=== PATIENT | female | born 1950 | race Caucasian/White ===

== ENCOUNTER 2016-11-21 06:14 | Inpatient (IN) | payer MEDICARE, OTHER ==
[~2016-11-21] VITALS: Ht 162.6 cm; Wt 92.0 kg
[~2016-11-21 06:14] MED LIST: ANTIVERT 25MG25 MG PO; HCTZ 25MG TAB25 MG; MICARDIS80 MG; PEN-VEE K500 MG PO; PERCOCET 325 MG1 TA2 PO; PRAVACHOL 20MG20 MG; PRAVACHOL 20MG20 MG PO; PRINZIDE 25 MG-1 TAB PO
[2016-11-21 06:56] LABS: BASO % 0.6 % (0.0-2.0); EOS # 0.1 (0.0-0.7); EOS % 1.3 % (0-4.0); GRAN # 2.9 (1.4-6.5); GRAN % 61.2 % (42.2-75.2); HEMATOCRIT 38.2 % (37.0-47.0); HEMOGLOBIN 12.8 g/dl (12.5-16.0); LYMPH # 1.4 (1.2-3.4); LYMPH % 29.7 % (20.0-51.0); MEAN CELL VOLUME 87 fl (80.0-100.0); MEAN CORPUSCULAR HEMOGLOBIN 29 pg (27.0-31.0); MEAN CORPUSCULAR HGB CONC 34 g/dl (33.0-37.0); MEAN PLATELET VOLUME 10.3 fl (7.4-10.4); MONO # 0.3 (0.1-0.6); PLATELET COUNT 128 K/mm3 (130-400); RED BLOOD COUNT 4.39 M/mm3 (4.10-5.30); REDCELL DISTRIBUTION WIDTH-CV 13.6 % (11.5-14.5); WHITE BLOOD COUNT 4.7 K/mm3 (4.8-10.8)
[2016-11-21 07:00] LABS: INR 1.1 (0.8-3.0); PROTHROMBIN TIME 12.1 SECONDS (9.7-12.8)
[2016-11-21 07:09] LABS: ADJUSTED CALCIUM 9.1 mg/dL (8.4-10.2); ALANINE AMINOTRANSFERASE 27 U/L (9-52); ALBUMIN 4.5 gm/dL (3.5-5.0); ALKALINE PHOSPHATASE 105 U/L (50-136); ANION GAP 11 mmol/L (7-16); BILIRUBIN,TOTAL 1.4 mg/dL (0.0-1.0); BLOOD UREA NITROGEN 13 mg/dL (7-17); CALCIUM 9.5 mg/dL (8.4-10.2); CARBON DIOXIDE 25 mmol/L (22-30); CHLORIDE 102 mmol/L (98-107); CREATININE, serum 0.66 mg/dL (0.52-1.25); GLUCOSE 145 mg/dL (74-106); POTASSIUM 3.6 mmol/L (3.4-5.0); SODIUM 138 mmol/L (137-145); TOTAL PROTEIN 7.9 gm/dL (6.4-8.2)
[2016-11-21 07:52] LABS: TROPONIN-I < 0.012 ng/mL (0.000-0.034)
[2016-11-21 07:55] LABS: B-TYPE NATRIURETIC PEPTIDE 977 pg/mL (0-125)
[2016-11-21 10:04] VITALS: BP 173/99; PULSE 88; TEMP 97.3
[2016-11-21 11:43] VITALS: BP 184/86; PULSE 88; TEMP 97.3
[2016-11-21 16:44] VITALS: BP 169/81; PULSE 82; TEMP 98
[2016-11-21 22:15] VITALS: BP 161/98; PULSE 73
[2016-11-22] VITALS (11 sets, daily range): BP systolic 148–189; BP diastolic 67–100; PULSE 70–99; TEMP 97.8–98.5
[2016-11-22 08:49] LABS: TROPONIN-I < 0.012 ng/mL (0.000-0.034)
[2016-11-22 09:02] LABS: CHOLESTEROL 220 mg/dL (120-200); HDL CHOLESTEROL 46 mg/dL; LDL CHOLESTEROL 115 mg/dL; TRIGLYCERIDE 294 mg/dL
[2016-11-23] VITALS (21 sets, daily range): BP systolic 95–141; BP diastolic 46–84; PULSE 58–83; TEMP 97.7–98
[2016-11-23 07:58] LABS: HEMATOCRIT 41.1 % (37.0-47.0); MEAN CELL VOLUME 88 fl (80.0-100.0); MEAN CORPUSCULAR HEMOGLOBIN 30 pg (27.0-31.0); MEAN CORPUSCULAR HGB CONC 34 g/dl (33.0-37.0); MEAN PLATELET VOLUME 10.6 fl (7.4-10.4); PLATELET COUNT 143 K/mm3 (130-400); RED BLOOD COUNT 4.69 M/mm3 (4.10-5.30); REDCELL DISTRIBUTION WIDTH-CV 13.9 % (11.5-14.5); WHITE BLOOD COUNT 5.6 K/mm3 (4.8-10.8)
[2016-11-23 08:02] LABS: INR 1.2 (0.8-3.0)
[2016-11-23 08:04] LABS: PARTIAL THROMBOPLASTIN TIME 38.4 SECONDS (26.0-37.0)
[2016-11-23 08:13] LABS: CALCIUM 9.8 mg/dL (8.4-10.2); CREATININE, serum 0.75 mg/dL (0.52-1.25); POTASSIUM 3.7 mmol/L (3.4-5.0)
[2016-11-24] VITALS (13 sets, daily range): BP systolic 85–130; BP diastolic 47–65; PULSE 71–83; TEMP 97.9–98.5
[2016-11-24] MEDS ORDERED: PLAVIX 75MG TAB75 MG PO (12:52)
[2016-11-24] MEDS ORDERED: IMDUR 30MG30 MG/TAB PO (12:53)
[2016-11-24] MEDS ORDERED: LIPITOR20 MG PO (12:53)
[2016-11-24] MEDS ORDERED: ZESTRIL 5MG5 MG PO (12:54)
[2016-11-24] MEDS ORDERED: ASPIRIN E.C. 8181 MG PO (12:54)
[2016-11-24] MEDS ORDERED: COREG 3.123.125 MG/T PO (15:44)
[2016-11-24] MEDS ORDERED: NITROSTAT0.4 MG/TAB SL (15:44)
== END 2016-11-24 18:45 | disposition home or self-care (01) | DRG 287 ==
LOC: COL.ER 06:14 → MEDICAL 08:07
PROVIDERS: Family Medicine; Internal Medicine Cardiovascular Disease; Nurse Practitioner Family
PROC: B2111ZZ Fluoroscopy of Multiple Coronary Arteries using Low Osmolar Contrast (ICD-10-PCS; principal; 2016-11-23)
DX: I16.0 Hypertensive urgency (principal); I42.0 Dilated cardiomyopathy; I50.22 Chronic systolic (congestive) heart failure; I11.0 Hypertensive heart disease with heart failure; I25.10 Atherosclerotic heart disease of native coronary artery without angina pectoris; Z87.891 Personal history of nicotine dependence
CPT/HCPCS: 99232-AI; 99233-AI; 99239; A9502; C1769; C1887; C1894; G0378; J1644; J1650; J2250; J2785; J3010; J7040; Q9967

== ENCOUNTER 2016-12-01 00:11 | Emergency (ER) | payer MEDICARE ==
[~2016-12-01] VITALS: Ht 162.6 cm; Wt 90.9 kg
[~2016-12-01 00:11] MED LIST changes: +ASPIRIN E.C. 8181 MG PO; +COREG 3.123.125 MG/T PO; +IMDUR 30MG30 MG/TAB PO; +LIPITOR20 MG PO; +NITROSTAT0.4 MG/TAB SL; +PLAVIX 75MG TAB75 MG PO; +ZESTRIL 5MG5 MG PO
[2016-12-01 00:14] VITALS: TEMP 97.5
[2016-12-01 00:41] LABS: BASO % 0.5 % (0.0-2.0); EOS # 0.1 (0.0-0.7); EOS % 0.9 % (0-4.0); GRAN # 4.2 (1.4-6.5); GRAN % 63.1 % (42.2-75.2); HEMATOCRIT 36.8 % (37.0-47.0); HEMOGLOBIN 12.6 g/dl (12.5-16.0); LYMPH # 1.8 (1.2-3.4); LYMPH % 27.3 % (20.0-51.0); MEAN CELL VOLUME 86 fl (80.0-100.0); MEAN CORPUSCULAR HEMOGLOBIN 30 pg (27.0-31.0); MEAN CORPUSCULAR HGB CONC 34 g/dl (33.0-37.0); MEAN PLATELET VOLUME 10.7 fl (7.4-10.4); MONO # 0.5 (0.1-0.6); MONO % 7.9 % (1.7-9.3); PLATELET COUNT 135 K/mm3 (130-400); RED BLOOD COUNT 4.26 M/mm3 (4.10-5.30); REDCELL DISTRIBUTION WIDTH-CV 13.5 % (11.5-14.5); WHITE BLOOD COUNT 6.6 K/mm3 (4.8-10.8)
[2016-12-01 00:45] LABS: INR 1.2 (0.8-3.0); PROTHROMBIN TIME 13.2 SECONDS (9.7-12.8)
[2016-12-01 00:47] LABS: PARTIAL THROMBOPLASTIN TIME 36.1 SECONDS (26.0-37.0)
[2016-12-01 00:50] LABS: ADJUSTED CALCIUM 9.4 mg/dL (8.4-10.2); ALANINE AMINOTRANSFERASE 40 U/L (9-52); ALBUMIN 4.4 gm/dL (3.5-5.0); ALKALINE PHOSPHATASE 95 U/L (50-136); ANION GAP 14 mmol/L (7-16); BILIRUBIN,TOTAL 1.5 mg/dL (0.0-1.0); BLOOD UREA NITROGEN 12 mg/dL (7-17); CALCIUM 9.7 mg/dL (8.4-10.2); CARBON DIOXIDE 26 mmol/L (22-30); CHLORIDE 101 mmol/L (98-107); GLUCOSE 109 mg/dL (74-106); LIPASE 95 U/L (23-300); POTASSIUM 3.9 mmol/L (3.4-5.0); SODIUM 141 mmol/L (137-145); TOTAL PROTEIN 7.5 gm/dL (6.4-8.2)
[2016-12-01 01:02] LABS: B-TYPE NATRIURETIC PEPTIDE 1090 pg/mL (0-125); TROPONIN-I < 0.012 ng/mL (0.000-0.034)
[2016-12-01 04:02] VITALS: BP 150/67; PULSE 75
[2016-12-01] MEDS ORDERED: PROTONIX 40MG T40 MG PO (04:56)
== END 2016-12-01 05:10 | disposition home or self-care (01) ==
LOC: COL.ER 00:11
PROVIDERS: Emergency Medicine
DX: R00.2 Palpitations (principal); K29.70 Gastritis, unspecified, without bleeding; I25.10 Atherosclerotic heart disease of native coronary artery without angina pectoris; I11.0 Hypertensive heart disease with heart failure; I50.9 Heart failure, unspecified; E78.5 Hyperlipidemia, unspecified; Z79.82 Long term (current) use of aspirin; Z87.891 Personal history of nicotine dependence; Z95.9 Presence of cardiac and vascular implant and graft, unspecified

== ENCOUNTER 2016-12-16 03:22 | Emergency (ER) | payer MEDICARE ==
[~2016-12-16] VITALS: Ht 162.6 cm; Wt 86.4 kg
[~2016-12-16 03:22] MED LIST changes: +PROTONIX 40MG T40 MG PO
[2016-12-16 03:30] VITALS: TEMP 98
[2016-12-16 03:47] LABS: BASO % 0.5 % (0.0-2.0); EOS # 0.1 (0.0-0.7); EOS % 1.4 % (0-4.0); GRAN # 2.7 (1.4-6.5); GRAN % 62.7 % (42.2-75.2); LYMPH # 1.1 (1.2-3.4); LYMPH % 25.5 % (20.0-51.0); MEAN CELL VOLUME 88 fl (80.0-100.0); MEAN CORPUSCULAR HGB CONC 34 g/dl (33.0-37.0); MEAN PLATELET VOLUME 11.3 fl (7.4-10.4); MONO # 0.4 (0.1-0.6); MONO % 9.7 % (1.7-9.3); PLATELET COUNT 96 K/mm3 (130-400); RED BLOOD COUNT 3.78 M/mm3 (4.10-5.30); REDCELL DISTRIBUTION WIDTH-CV 13.6 % (11.5-14.5); WHITE BLOOD COUNT 4.4 K/mm3 (4.8-10.8)
[2016-12-16 03:48] LABS: HEMATOCRIT 33.4 % (37.0-47.0); HEMOGLOBIN 11.3 g/dl (12.5-16.0); MEAN CORPUSCULAR HEMOGLOBIN 30 pg (27.0-31.0)
[2016-12-16 03:55] LABS: ADJUSTED CALCIUM 9.1 mg/dL (8.4-10.2); ALANINE AMINOTRANSFERASE 42 U/L (9-52); ALBUMIN 4.3 gm/dL (3.5-5.0); ALKALINE PHOSPHATASE 81 U/L (50-136); ANION GAP 14 mmol/L (7-16); BILIRUBIN,TOTAL 1.2 mg/dL (0.0-1.0); BLOOD UREA NITROGEN 17 mg/dL (7-17); CALCIUM 9.3 mg/dL (8.4-10.2); CARBON DIOXIDE 23 mmol/L (22-30); CHLORIDE 104 mmol/L (98-107); CREATININE, serum 0.73 mg/dL (0.52-1.25); GLUCOSE 142 mg/dL (74-106); LIPASE 147 U/L (23-300); POTASSIUM 3.3 mmol/L (3.4-5.0); SODIUM 141 mmol/L (137-145); TOTAL PROTEIN 7.3 gm/dL (6.4-8.2)
[2016-12-16 04:07] LABS: B-TYPE NATRIURETIC PEPTIDE 416 pg/mL (0-125)
[2016-12-16 04:08] LABS: TROPONIN-I < 0.012 ng/mL (0.000-0.034)
[2016-12-16 05:33] VITALS: BP 150/69; PULSE 74
== END 2016-12-16 05:33 | disposition home or self-care (01) ==
LOC: COL.ER 03:22
PROVIDERS: Emergency Medicine
DX: R07.9 Chest pain, unspecified (principal); R00.2 Palpitations; D61.818 Other pancytopenia; I10 Essential (primary) hypertension; Z87.891 Personal history of nicotine dependence; F41.9 Anxiety disorder, unspecified; I42.9 Cardiomyopathy, unspecified

== ENCOUNTER 2016-12-24 08:21 | Emergency (ER) | payer MEDICARE ==
[~2016-12-24] VITALS: Ht 162.6 cm; Wt 84.1 kg
[2016-12-24 08:24] VITALS: TEMP 97.9
[2016-12-24] MEDS ORDERED: COREG 6.256.25 MG/TA PO (08:38)
[2016-12-24] MEDS ORDERED: ZESTRIL40 MG PO (08:39)
[2016-12-24] MEDS ORDERED: MASON NATURAL1200 MG PO (08:43)
[2016-12-24 09:14] LABS: BASO % 0.2 % (0.0-2.0); EOS # 0.1 (0.0-0.7); EOS % 1.3 % (0-4.0); GRAN # 3.3 (1.4-6.5); GRAN % 69.1 % (42.2-75.2); HEMOGLOBIN 12.4 g/dl (12.5-16.0); LYMPH % 21.3 % (20.0-51.0); MEAN CELL VOLUME 89 fl (80.0-100.0); MEAN CORPUSCULAR HEMOGLOBIN 30 pg (27.0-31.0); MEAN CORPUSCULAR HGB CONC 34 g/dl (33.0-37.0); MEAN PLATELET VOLUME 10.7 fl (7.4-10.4); MONO # 0.4 (0.1-0.6); MONO % 7.9 % (1.7-9.3); PLATELET COUNT 101 K/mm3 (130-400); REDCELL DISTRIBUTION WIDTH-CV 13.3 % (11.5-14.5); WHITE BLOOD COUNT 4.7 K/mm3 (4.8-10.8)
[2016-12-24 09:18] LABS: HEMATOCRIT 36.4 % (37.0-47.0)
[2016-12-24 09:25] LABS: ADJUSTED CALCIUM 9.3 mg/dL (8.4-10.2); ALANINE AMINOTRANSFERASE 51 U/L (9-52); ALBUMIN 4.3 gm/dL (3.5-5.0); ALKALINE PHOSPHATASE 98 U/L (50-136); ANION GAP 13 mmol/L (7-16); BILIRUBIN,TOTAL 1.6 mg/dL (0.0-1.0); BLOOD UREA NITROGEN 10 mg/dL (7-17); CALCIUM 9.5 mg/dL (8.4-10.2); CARBON DIOXIDE 25 mmol/L (22-30); CHLORIDE 101 mmol/L (98-107); CREATININE, serum 0.67 mg/dL (0.52-1.25); GLUCOSE 136 mg/dL (74-106); LIPASE 68 U/L (23-300); POTASSIUM 3.7 mmol/L (3.4-5.0); SODIUM 140 mmol/L (137-145); TOTAL PROTEIN 7.4 gm/dL (6.4-8.2)
[2016-12-24 09:49] LABS: TROPONIN-I < 0.012 ng/mL (0.000-0.034)
[2016-12-24 10:49] VITALS: BP 149/76; PULSE 72
== END 2016-12-24 11:00 | disposition home or self-care (01) ==
LOC: COL.ER 08:21
PROVIDERS: Emergency Medicine
DX: R19.7 Diarrhea, unspecified (principal); I10 Essential (primary) hypertension; K21.9 Gastro-esophageal reflux disease without esophagitis; Z87.11 Personal history of peptic ulcer disease; Z87.891 Personal history of nicotine dependence
CPT/HCPCS: J7030

== ENCOUNTER → 2017-01-05 | Outpatient (CLI) | payer MEDICARE ==
[~2017-01-05] MED LIST changes: +COREG 6.256.25 MG/TA PO; +MASON NATURAL1200 MG PO; +NORCO 325 MG-51 TAB PO; +NORVASC 5MG5 MG/TAB PO; +ULTRAM 50MG TAB50 MG PO; +ZESTRIL40 MG PO
== END ==
LOC: MC.RAD 09:35
DX: Z12.31 Encounter for screening mammogram for malignant neoplasm of breast (principal)

== ENCOUNTER → 2017-01-11 | Outpatient (CLI) | payer MEDICARE | LOC: MC.RAD 09:35 | DX: N63 Unspecified lump in breast (principal); N64.89 Other specified disorders of breast ==

== ENCOUNTER 2017-01-12 19:54 | Emergency (ER) | payer MEDICARE ==
[~2017-01-12] VITALS: Ht 162.6 cm; Wt 84.5 kg
[~2017-01-12 19:54] MED LIST changes: -NORCO 325 MG-51 TAB PO; -NORVASC 5MG5 MG/TAB PO; -ULTRAM 50MG TAB50 MG PO
[2017-01-12 20:04] VITALS: TEMP 97.7
[2017-01-12 21:59] LABS: BASO % 0.3 % (0.0-2.0); EOS # 0.1 (0.0-0.7); EOS % 1.2 % (0-4.0); GRAN # 3.9 (1.4-6.5); GRAN % 66.2 % (42.2-75.2); HEMOGLOBIN 12.2 g/dl (12.5-16.0); LYMPH # 1.4 (1.2-3.4); LYMPH % 23.3 % (20.0-51.0); MEAN CELL VOLUME 88 fl (80.0-100.0); MEAN CORPUSCULAR HEMOGLOBIN 30 pg (27.0-31.0); MEAN CORPUSCULAR HGB CONC 34 g/dl (33.0-37.0); MEAN PLATELET VOLUME 10.8 fl (7.4-10.4); MONO # 0.5 (0.1-0.6); MONO % 8.8 % (1.7-9.3); PLATELET COUNT 122 K/mm3 (130-400); RED BLOOD COUNT 4.09 M/mm3 (4.10-5.30); REDCELL DISTRIBUTION WIDTH-CV 12.9 % (11.5-14.5); WHITE BLOOD COUNT 5.9 K/mm3 (4.8-10.8)
[2017-01-12 22:00] LABS: HEMATOCRIT 35.8 % (37.0-47.0)
[2017-01-12 22:12] LABS: ADJUSTED CALCIUM 9.6 mg/dL (8.4-10.2); ALANINE AMINOTRANSFERASE 39 U/L (9-52); ALBUMIN 4.1 gm/dL (3.5-5.0); ALKALINE PHOSPHATASE 100 U/L (50-136); ANION GAP 11 mmol/L (7-16); BILIRUBIN,TOTAL 1.4 mg/dL (0.0-1.0); BLOOD UREA NITROGEN 11 mg/dL (7-17); C-REACTIVE PROTEIN 0.8 mg/dL (0.0-0.9); CALCIUM 9.7 mg/dL (8.4-10.2); CARBON DIOXIDE 27 mmol/L (22-30); CHLORIDE 100 mmol/L (98-107); CREATININE, serum 0.77 mg/dL (0.52-1.25); GLUCOSE 110 mg/dL (74-106); LIPASE 66 U/L (23-300); POTASSIUM 3.6 mmol/L (3.4-5.0); SODIUM 138 mmol/L (137-145); TOTAL PROTEIN 7.3 gm/dL (6.4-8.2)
[2017-01-12 22:18] LABS: B-TYPE NATRIURETIC PEPTIDE 977 pg/mL (0-125)
[2017-01-12 22:22] LABS: ERYTHROCYTE SEDIMENTATION RATE 18 mm/hr (0-30)
[2017-01-12 22:23] LABS: TROPONIN-I < 0.012 ng/mL (0.000-0.034)
[2017-01-12] MEDS ORDERED: ULTRAM 50MG TAB50 MG PO (22:44)
[2017-01-12] MEDS ORDERED: NORCO 325 MG-51 TAB PO (22:44)
[2017-01-12 23:05] VITALS: BP 198/88; PULSE 55
== END 2017-01-12 23:02 | disposition home or self-care (01) ==
LOC: COL.ER 19:54
PROVIDERS: Emergency Medicine
DX: R07.9 Chest pain, unspecified (principal); D69.6 Thrombocytopenia, unspecified; I10 Essential (primary) hypertension; I42.8 Other cardiomyopathies; I25.10 Atherosclerotic heart disease of native coronary artery without angina pectoris; Z87.891 Personal history of nicotine dependence; Z79.02 Long term (current) use of antithrombotics/antiplatelets
CPT/HCPCS: C9113; J1170; J1885; J7030

== ENCOUNTER 2017-02-21 04:36 | Emergency (ER) | payer MEDICARE ==
[~2017-02-21] VITALS: Ht 162.6 cm; Wt 80.5 kg
[~2017-02-21 04:36] MED LIST changes: +NORCO 325 MG-51 TAB PO; +ULTRAM 50MG TAB50 MG PO
[2017-02-21 04:49] VITALS: TEMP 97.1
[2017-02-21] MEDS ORDERED: NORVASC 5MG5 MG/TAB PO (04:53)
[2017-02-21 05:26] LABS: BASO % 0.2 % (0.0-2.0); EOS # 0.1 (0.0-0.7); EOS % 0.9 % (0-4.0); GRAN # 3.6 (1.4-6.5); LYMPH # 1.3 (1.2-3.4); MEAN CELL VOLUME 88 fl (80.0-100.0); MEAN CORPUSCULAR HEMOGLOBIN 29 pg (27.0-31.0); MEAN CORPUSCULAR HGB CONC 33 g/dl (33.0-37.0); MEAN PLATELET VOLUME 10.4 fl (7.4-10.4); MONO # 0.5 (0.1-0.6); MONO % 8.9 % (1.7-9.3); PLATELET COUNT 114 K/mm3 (130-400); RED BLOOD COUNT 4.08 M/mm3 (4.10-5.30); REDCELL DISTRIBUTION WIDTH-CV 13.2 % (11.5-14.5); WHITE BLOOD COUNT 5.4 K/mm3 (4.8-10.8)
[2017-02-21 05:27] LABS: HEMATOCRIT 35.9 % (37.0-47.0)
[2017-02-21 05:36] LABS: ADJUSTED CALCIUM 9.2 mg/dL (8.4-10.2); ALBUMIN 4.2 gm/dL (3.5-5.0); BILIRUBIN,TOTAL 1.1 mg/dL (0.0-1.0); CALCIUM 9.4 mg/dL (8.4-10.2); CREATININE, serum 0.73 mg/dL (0.52-1.25); MAGNESIUM 1.8 mg/dL (1.6-2.3); POTASSIUM 3.4 mmol/L (3.4-5.0); TOTAL PROTEIN 7.3 gm/dL (6.4-8.2)
[2017-02-21 06:05] VITALS: BP 185/89; PULSE 61
== END 2017-02-21 06:06 | disposition home or self-care (01) ==
LOC: COL.ER 04:36
PROVIDERS: Emergency Medicine
DX: M79.652 Pain in left thigh (principal); I10 Essential (primary) hypertension; E78.5 Hyperlipidemia, unspecified; K21.9 Gastro-esophageal reflux disease without esophagitis

== ENCOUNTER 2017-08-07 08:27 | Emergency (ER) | payer MEDICARE ==
[~2017-08-07] VITALS: Ht 162.6 cm; Wt 81.8 kg
[~2017-08-07 08:27] MED LIST changes: +COREG12.5 MG PO; +LIPITOR 40MG TA40 MG PO; +NORVASC 10MG10 MG PO; +NORVASC 5MG5 MG/TAB PO; +REQUIP 0.5MG0.5 MG PO
[2017-08-07 09:52] LABS: INFLUENZA A NEGATIVE; INFLUENZA B NEGATIVE
[2017-08-07 09:54] LABS: BASO % 0.2 % (0.0-2.0); EOS # 0.1 (0.0-0.7); EOS % 1.2 % (0-4.0); GRAN # 3.8 (1.4-6.5); GRAN % 66.7 % (42.2-75.2); INR 1.1 (0.8-3.0); LYMPH # 1.3 (1.2-3.4); MEAN CELL VOLUME 88 fl (80.0-100.0); MEAN CORPUSCULAR HGB CONC 34 g/dl (33.0-37.0); MEAN PLATELET VOLUME 10.1 fl (7.4-10.4); MONO # 0.5 (0.1-0.6); MONO % 8.7 % (1.7-9.3); PLATELET COUNT 131 K/mm3 (130-400); PROTHROMBIN TIME 13.1 SECONDS (9.7-12.8); RED BLOOD COUNT 3.96 M/mm3 (4.10-5.30); REDCELL DISTRIBUTION WIDTH-CV 12.6 % (11.5-14.5)
[2017-08-07 09:57] LABS: PARTIAL THROMBOPLASTIN TIME 32.7 SECONDS (26.0-37.0)
[2017-08-07] MEDS ORDERED: COREG 6.256.25 MG/TA PO (09:57)
[2017-08-07 10:01] LABS: ALANINE AMINOTRANSFERASE 32 U/L (9-52); ALBUMIN 4.4 gm/dL (3.5-5.0); ALKALINE PHOSPHATASE 120 U/L (50-136); ANION GAP 8 mmol/L (7-16); AST,SGOT 24 U/L (15-37); BILIRUBIN,TOTAL 0.9 mg/dL (0.0-1.0); BLOOD UREA NITROGEN 13 mg/dL (7-17); CALCIUM 9.7 mg/dL (8.4-10.2); CARBON DIOXIDE 30 mmol/L (22-30); CHLORIDE 101 mmol/L (98-107); CREATININE, serum 0.68 mg/dL (0.52-1.25); GLUCOSE 149 mg/dL (74-106); POTASSIUM 3.9 mmol/L (3.4-5.0); SODIUM 138 mmol/L (137-145); TOTAL PROTEIN 7.3 gm/dL (6.4-8.2)
[2017-08-07 10:10] LABS: HEMATOCRIT 34.8 % (37.0-47.0); HEMOGLOBIN 11.7 g/dl (12.5-16.0); MEAN CORPUSCULAR HEMOGLOBIN 30 pg (27.0-31.0)
[2017-08-07 10:14] LABS: TROPONIN-I < 0.012 ng/mL (0.000-0.034)
[2017-08-07 10:31] LABS: D-DIMER < 200.00 ng/mLDDu (200-230)
[2017-08-07] MEDS ORDERED: ZITHROMAX Z PA250 MG PO (11:44)
[2017-08-07] MEDS ORDERED: NORCO 325 MG-51 TAB PO (11:44)
[2017-08-07 12:01] VITALS: BP 1174/67; PULSE 67; TEMP 97.8
== END 2017-08-07 12:03 | disposition home or self-care (01) ==
LOC: COL.ER 08:27
PROVIDERS: Family Medicine
DX: J20.9 Acute bronchitis, unspecified (principal); I25.10 Atherosclerotic heart disease of native coronary artery without angina pectoris

== ENCOUNTER 2017-12-20 11:26 | Emergency (ER) | payer MEDICARE ==
[~2017-12-20] VITALS: Ht 162.6 cm; Wt 86.4 kg
[~2017-12-20 11:26] MED LIST changes: +ZITHROMAX Z PA250 MG PO
[2017-12-20 11:29] VITALS: TEMP 98.5
[2017-12-20] MEDS ORDERED: GLUCOPHAGE500 MG/TAB PO (11:54)
[2017-12-20 12:00] LABS: BASO % 0.5 % (0.0-2.0); EOS # 0.1 (0.0-0.7); EOS % 1.2 % (0-4.0); GRAN # 3.8 (1.4-6.5); GRAN % 64.8 % (42.2-75.2); HEMATOCRIT 36.5 % (37.0-47.0); HEMOGLOBIN 12.6 g/dl (12.5-16.0); LYMPH # 1.4 (1.2-3.4); LYMPH % 24.2 % (20.0-51.0); MEAN CELL VOLUME 87 fl (80.0-100.0); MEAN CORPUSCULAR HEMOGLOBIN 30 pg (27.0-31.0); MEAN CORPUSCULAR HGB CONC 35 g/dl (33.0-37.0); MEAN PLATELET VOLUME 10.4 fl (7.4-10.4); MONO # 0.5 (0.1-0.6); PLATELET COUNT 144 K/mm3 (130-400)
[2017-12-20 12:07] LABS: ALANINE AMINOTRANSFERASE 45 U/L (9-52); ALBUMIN 4.2 gm/dL (3.5-5.0); ALKALINE PHOSPHATASE 118 U/L (50-136); ANION GAP 13 mmol/L (7-16); AST,SGOT 29 U/L (15-37); BLOOD UREA NITROGEN 18 mg/dL (7-17); CALCIUM 9.8 mg/dL (8.4-10.2); CARBON DIOXIDE 26 mmol/L (22-30); CHLORIDE 100 mmol/L (98-107); CREATININE, serum 0.68 mg/dL (0.52-1.25); GLUCOSE 166 mg/dL (74-106); POTASSIUM 4.2 mmol/L (3.4-5.0); SODIUM 138 mmol/L (137-145)
[2017-12-20 12:25] LABS: TROPONIN-I < 0.012 ng/mL (0.000-0.034)
[2017-12-20 12:37] LABS: INR 0.9 (0.8-3.0); PROTHROMBIN TIME 10.3 SECONDS (9.7-12.8)
[2017-12-20 12:40] LABS: PARTIAL THROMBOPLASTIN TIME 34.5 SECONDS (26.0-37.0)
[2017-12-20] MEDS ORDERED: LIPITOR 40MG TA40 MG PO (13:18)
[2017-12-20] MEDS ORDERED: IMDUR 30MG30 MG/TAB PO (13:18)
[2017-12-20 13:30] VITALS: BP 139/73; PULSE 75
== END 2017-12-20 13:48 | disposition home or self-care (01) ==
LOC: COL.ER 11:26
PROVIDERS: Emergency Medicine
DX: R07.89 Other chest pain (principal); I25.10 Atherosclerotic heart disease of native coronary artery without angina pectoris; I42.9 Cardiomyopathy, unspecified; I10 Essential (primary) hypertension; E11.9 Type 2 diabetes mellitus without complications; E78.5 Hyperlipidemia, unspecified; Z79.82 Long term (current) use of aspirin; Z79.02 Long term (current) use of antithrombotics/antiplatelets; Z79.84 Long term (current) use of oral hypoglycemic drugs
CPT/HCPCS: J7030

== ENCOUNTER 2018-03-05 21:10 | Emergency (ER) | payer MEDICARE ==
[~2018-03-05] VITALS: Ht 162.6 cm; Wt 90.9 kg
[~2018-03-05 21:10] MED LIST changes: +GLUCOPHAGE500 MG/TAB PO
[2018-03-05 21:13] VITALS: TEMP 97.7
[2018-03-05 22:12] LABS: BASO % 0.4 % (0.0-2.0); EOS # 0.1 (0.0-0.7); EOS % 1.2 % (0-4.0); GRAN # 4.1 (1.4-6.5); HEMOGLOBIN 12.1 g/dl (12.5-16.0); LYMPH # 1.8 (1.2-3.4); LYMPH % 26.7 % (20.0-51.0); MEAN CELL VOLUME 87 fl (80.0-100.0); MEAN CORPUSCULAR HEMOGLOBIN 30 pg (27.0-31.0); MEAN CORPUSCULAR HGB CONC 34 g/dl (33.0-37.0); MEAN PLATELET VOLUME 10.5 fl (7.4-10.4); MONO # 0.7 (0.1-0.6); MONO % 10.3 % (1.7-9.3); PLATELET COUNT 147 K/mm3 (130-400); RED BLOOD COUNT 4.08 M/mm3 (4.10-5.30); REDCELL DISTRIBUTION WIDTH-CV 12.9 % (11.5-14.5)
[2018-03-05 22:14] LABS: HEMATOCRIT 35.3 % (37.0-47.0)
[2018-03-05 22:26] LABS: ALANINE AMINOTRANSFERASE 31 U/L (9-52); ALBUMIN 4.1 gm/dL (3.5-5.0); ALKALINE PHOSPHATASE 99 U/L (50-136); ANION GAP 12 mmol/L (7-16); AST,SGOT 26 U/L (15-37); BILIRUBIN,TOTAL 0.6 mg/dL (0.0-1.0); BLOOD UREA NITROGEN 14 mg/dL (7-17); CALCIUM 9.3 mg/dL (8.4-10.2); CARBON DIOXIDE 27 mmol/L (22-30); CHLORIDE 100 mmol/L (98-107); CREATININE, serum 0.71 mg/dL (0.52-1.25); GLUCOSE 138 mg/dL (74-106); POTASSIUM 3.4 mmol/L (3.4-5.0); SODIUM 139 mmol/L (137-145); TOTAL PROTEIN 7.3 gm/dL (6.4-8.2)
[2018-03-05 22:44] LABS: TROPONIN-I < 0.012 ng/mL (0.000-0.034)
[2018-03-05 23:56] VITALS: BP 163/82
[2018-03-06 00:43] VITALS: PULSE 67
== END 2018-03-06 00:54 | disposition home or self-care (01) ==
LOC: COL.ER 21:10
PROVIDERS: Emergency Medicine
DX: R07.89 Other chest pain (principal); I10 Essential (primary) hypertension; E78.5 Hyperlipidemia, unspecified; E11.9 Type 2 diabetes mellitus without complications; Z87.891 Personal history of nicotine dependence; Z79.02 Long term (current) use of antithrombotics/antiplatelets; Z79.82 Long term (current) use of aspirin
CPT/HCPCS: J7030

== ENCOUNTER 2018-05-05 19:52 | Emergency (ER) | payer MEDICARE ==
[~2018-05-05] VITALS: Ht 162.6 cm; Wt 86.4 kg
[2018-05-05 19:53] VITALS: TEMP 97.5
[2018-05-05] MEDS ORDERED: ZOFRAN ODT4 MG PO (20:27)
[2018-05-05] MEDS ORDERED: ANTIVERT 25MG25 MG PO (20:27)
[2018-05-05] MEDS ORDERED: PRINIVIL20 MG PO (20:38)
[2018-05-05] MEDS ORDERED: CRESTOR5 MG PO (20:39)
[2018-05-05 21:49] VITALS: BP 135/75; PULSE 73
== END 2018-05-05 21:52 | disposition home or self-care (01) ==
LOC: COL.ER 19:52
DX: R42 Dizziness and giddiness (principal); I25.10 Atherosclerotic heart disease of native coronary artery without angina pectoris; I10 Essential (primary) hypertension; E78.5 Hyperlipidemia, unspecified; E11.9 Type 2 diabetes mellitus without complications; Z79.02 Long term (current) use of antithrombotics/antiplatelets; Z79.84 Long term (current) use of oral hypoglycemic drugs

== ENCOUNTER 2018-10-30 12:59 | Observation (INO) | payer MEDICARE ==
[~2018-10-30] VITALS: Ht 162.6 cm; Wt 88.6 kg
[~2018-10-30 12:59] MED LIST changes: +CRESTOR5 MG PO; +PRINIVIL20 MG PO; +ZOFRAN ODT4 MG PO
[2018-10-30 14:16] VITALS: BP 101/80; PULSE 71
[2018-10-30 14:34] LABS: BASO % 0.4 % (0.0-2.0); EOS # 0.1 (0.0-0.7); EOS % 0.8 % (0-4.0); GRAN # 5.4 (1.4-6.5); GRAN % 72.1 % (42.2-75.2); HEMATOCRIT 40.5 % (37.0-47.0); LYMPH # 1.4 (1.2-3.4); LYMPH % 18.3 % (20.0-51.0); MEAN CELL VOLUME 89 fl (80.0-100.0); MEAN CORPUSCULAR HEMOGLOBIN 28 pg (27.0-31.0); MEAN CORPUSCULAR HGB CONC 32 g/dl (33.0-37.0); MEAN PLATELET VOLUME 10.6 fl (7.4-10.4); MONO # 0.6 (0.1-0.6); MONO % 8.1 % (1.7-9.3); PLATELET COUNT 151 K/mm3 (130-400); RED BLOOD COUNT 4.57 M/mm3 (4.10-5.30); REDCELL DISTRIBUTION WIDTH-CV 13.2 % (11.5-14.5)
[2018-10-30 14:37] LABS: INR 1.1 (0.8-3.0); PROTHROMBIN TIME 12.3 SECONDS (9.7-12.8)
[2018-10-30 14:40] LABS: PARTIAL THROMBOPLASTIN TIME 33.7 SECONDS (26.0-37.0)
[2018-10-30 14:45] LABS: ALANINE AMINOTRANSFERASE 21 U/L (9-52); ALBUMIN 4.5 gm/dL (3.5-5.0); ALKALINE PHOSPHATASE 126 U/L (50-136); ANION GAP 8 mmol/L (7-16); AST,SGOT 31 U/L (15-37); BLOOD UREA NITROGEN 15 mg/dL (7-17); CARBON DIOXIDE 27 mmol/L (22-30); CHLORIDE 103 mmol/L (98-107); CREATININE, serum 0.86 (0.52-1.25); GLUCOSE 135 mg/dL (74-106); LIPASE 80 U/L (23-300); MAGNESIUM 1.9 mg/dL (1.6-2.3); POTASSIUM 4.5 mmol/L (3.4-5.0); SODIUM 138 mmol/L (137-145)
[2018-10-30 15:00] LABS: TROPONIN-I < 0.012 ng/mL (0.000-0.035)
--- NOTE | 2018-10-30 16:56 | NUR ---
Pt arrived to room 310 at this time. She is A/O x3. Her breathing is even and unlabored on RA. Pt denies SOB. No pain at this time. She denies any N/V. No N/T. Denies dizziness. IVF infusing into RAC without complications. Pt unable to verify frequency of all medications, to bring later tonight. POC discussed with patient and family. No needs at this time. Call light within reach.
[2018-10-30 17:00] VITALS: BP 150/62; PULSE 66; TEMP 97.7
[2018-10-30 20:00] VITALS: BP 153/65; PULSE 74; TEMP 97.4
--- NOTE | 2018-10-30 21:00 | NUR ---
pt resting in bed with daughter at bedside. pt reports no pain. no nausea. no SOA. right AC IV- no redness, no swelling. elevated BP, VSS. no needs at this time, call light in reach.
[2018-10-30 23:58] VITALS: BP 150/74; PULSE 67; TEMP 98.2
--- NOTE | 2018-10-31 01:09 | NUR ---
neuro checks unchanged. no pain. no needs at this time. call light inreach
[2018-10-31 03:42] VITALS: BP 117/47; BP 129/61; PULSE 52; PULSE 72; TEMP 98.7
--- NOTE | 2018-10-31 04:46 | NUR ---
pt resting in bed throughout night. no pain. tele on. neuro checks unchanged. no needs at this time. call light in reach.
--- NOTE | 2018-10-31 06:53 | NUR ---
report given to KAYLEN Lugo. reports no needs
[2018-10-31 07:34] VITALS: BP 158/75; PULSE 71; TEMP 98.6
[2018-10-31 07:56] LABS: BASO % 0.3 % (0.0-2.0); EOS # 0.1 (0.0-0.7); GRAN # 3.8 (1.4-6.5); GRAN % 66.7 % (42.2-75.2); HEMATOCRIT 37.8 % (37.0-47.0); HEMOGLOBIN 12.4 g/dl (12.5-16.0); LYMPH # 1.3 (1.2-3.4); LYMPH % 22.9 % (20.0-51.0); MEAN CELL VOLUME 89 fl (80.0-100.0); MEAN CORPUSCULAR HEMOGLOBIN 29 pg (27.0-31.0); MEAN CORPUSCULAR HGB CONC 33 g/dl (33.0-37.0); MEAN PLATELET VOLUME 10.7 fl (7.4-10.4); MONO # 0.5 (0.1-0.6); MONO % 8.9 % (1.7-9.3); PLATELET COUNT 133 K/mm3 (130-400); RED BLOOD COUNT 4.23 M/mm3 (4.10-5.30)
[2018-10-31 08:05] LABS: CALCIUM 9.5 mg/dL (8.4-10.2); CREATININE, serum 0.65 (0.52-1.25); POTASSIUM 4.3 mmol/L (3.4-5.0)
--- NOTE | 2018-10-31 08:33 | NUR ---
patient was admitted from the ER. patient stated she became dizzy and fell and was admitted with a primary diagnosis of synscope. patient was awake in bed and A&Ox4 this morning. IV sites showed no signs if infection or infiltration. Patient stated no pain. After assessments left patient with call light with in reach and bed in the lowest position.
--- NOTE | 2018-10-31 08:40 | NUR ---
Pt assessment complete. Pt has a student nurse caring for her this AM. Pt is A/O x3. Her breathing is even and unlabored on RA. Pt denies any SOB. No pain at present. Pt denies N/V. No dizziness at this time. Neuro checks intact. POC discussed with patient and her . No needs at this time. Call light within reach.
--- NOTE | 2018-10-31 08:59 | NUR ---
MARCIAL student met with the patient and her granddaughter to discuss discharge planning. The patient lives in [place] with her , Vivek, and her granddaughter. The patient reports independence with ADLs and has a cane. The patients PCP is Dr. Belkis Rincon and she gets her medications from [facility]. The patient reports no difficulties obtaining her medications. The patient does not have DPOA-HC in EMR but was interested in completing one. MARCIAL provided and will follow up to witness sign. The patient plans to return home upon discharge with her family. No additional needs at this time.
--- NOTE | 2018-10-31 09:35 | NUR ---
PATIENT AMBULATED IN HALLWAY FOR 10 MINUETS AT MODERATE PACE WITH STAND BY ASSIST. DENIES C/O BEING DIZZY, LIGHTHEADED, SHORT OF BREATHE, OR HAVING CHEST PAIN. PRE WALK FVS @ 0902: BP 142/68, HR 73, RR 16, T 98.6 ORALLY, SP02 96% ON RA. POST WALK FVS @ 0912: BP 143/63, HR 72, RR 18, T 97.7, SPO2 97% RA. PATIENT DENIES COMPLAINT DURING WALK.
--- NOTE | 2018-10-31 11:32 | NUR ---
Discharge instructions and paperwork reviewed with patient, all questions answered at this time. IV to RFA dc'd, catheter tip intact. Pt wheeled out of facility by staff at this time.
--- NOTE | 2018-10-31 13:25 | NUR ---
Primary nurse was assisted with [id number] patient care by [employer] [employer] ADN student Andre Elena and [employer] ADM instructor Hallie Driver RN-PRIYANKA.
== END 2018-10-31 11:33 | disposition home or self-care (01) ==
LOC: COL.ER 12:59 → MEDICAL 15:27
PROVIDERS: Emergency Medicine; Physician Assistant
DX: R55 Syncope and collapse (principal); E78.5 Hyperlipidemia, unspecified; I25.10 Atherosclerotic heart disease of native coronary artery without angina pectoris; I11.0 Hypertensive heart disease with heart failure; I50.20 Unspecified systolic (congestive) heart failure; E11.9 Type 2 diabetes mellitus without complications; Z79.02 Long term (current) use of antithrombotics/antiplatelets; Z79.84 Long term (current) use of oral hypoglycemic drugs; Z87.891 Personal history of nicotine dependence; Z80.9 Family history of malignant neoplasm, unspecified
CPT/HCPCS: 99239; G0378; J1650; J7030

== ENCOUNTER → 2019-08-03 | Emergency (ER) | payer MEDICARE ==
[~2019-08-03] MED LIST changes: +CYMBALTA 30MG30 MG PO; +DITROPAN 5MG TAB5 MG PO
== END ==
LOC: COL.ER 16:50
DX: Z72.9 Problem related to lifestyle, unspecified (principal); Z79.02 Long term (current) use of antithrombotics/antiplatelets; Z79.84 Long term (current) use of oral hypoglycemic drugs

== ENCOUNTER 2020-05-10 13:35 | Inpatient (IN) | payer MEDICARE ==
[~2020-05-10] VITALS: Ht 162.6 cm; Wt 87.9 kg
[2020-05-10 14:47] LABS: ALBUMIN 3.7 gm/dL (3.5-5.0); C-REACTIVE PROTEIN 8.8 mg/dL (0.0-0.9); CALCIUM 8.6 mg/dL (8.4-10.2); CREATININE, serum 1.08 (0.52-1.25); POTASSIUM 4.1 mmol/L (3.4-5.0); TOTAL PROTEIN 7.1 gm/dL (6.4-8.2)
[2020-05-10 14:48] LABS: BASO % 0.2 % (0.0-2.0); GRAN # 3.9 (1.4-6.5); GRAN % 76.5 % (42.2-75.2); HEMATOCRIT 29.5 % (37.0-47.0); HEMOGLOBIN 9.8 g/dl (12.5-16.0); LYMPH # 0.6 (1.2-3.4); LYMPH % 12.4 % (20.0-51.0); MEAN CELL VOLUME 84 fl (80.0-100.0); MEAN CORPUSCULAR HEMOGLOBIN 28 pg (27.0-31.0); MEAN CORPUSCULAR HGB CONC 33 g/dl (33.0-37.0); MEAN PLATELET VOLUME 12.6 fl (7.4-10.4); MONO # 0.5 (0.1-0.6); MONO % 10.3 % (1.7-9.3); PLATELET COUNT 107 K/mm3 (130-400); RED BLOOD COUNT 3.53 M/mm3 (4.10-5.30); REDCELL DISTRIBUTION WIDTH-CV 13.9 % (11.5-14.5)
--- NOTE | 2020-05-10 19:22 | NUR ---
PT ARRIVED TO UNIT @ 1847 ACCOMPANIED BY ER NURSE. AOX4. DENIED PAIN. 1 ASSIST FROM WHEELCHAIR TO BED. PLACED ON 4L NC. ABLE TO MAKE NEEDS KNOWN. CHANGED INTO HOSPITAL GOWN. ANTI-SLIP SOCKS APPLIED. REPORT GIVEN TO ONCOMING NURSE @ 185.
[2020-05-10 19:46] VITALS: BP 128/78; PULSE 76; TEMP 99.1
[2020-05-10 19:51] VITALS: BP 128/78; PULSE 76; TEMP 99.1
--- NOTE | 2020-05-10 20:00 | NUR ---
Pt arrived to medical unit room 303 at 1845. Report received from KAYLEN Harper. Pt oriented to room. Admission assessments and med rec complete. Lung sounds diminished, heart rate and rhythm regular, A&Ox4. NS started at 125 ml/hr, doxycycline started piggyback. Pt reports occasional cough with thick white sputum. On 3 L O2 upon arrival to unit with O2 sat of 96%. Up to restroom SBA, removed O2, felt short of breath upon returning to bed. NC placed back on, O2 sat at 87% on 3 L. O2 increased to 4 L with pt eventually rising to 96%. Denies SOA at rest and pain. Call light in reach. Will continue to monitor.
[2020-05-10 23:51] VITALS: BP 150/74; PULSE 72; TEMP 98.4
--- NOTE | 2020-05-11 00:30 | NUR ---
Pt up to restroom on 4 L O2. O2 saturation at 86% once back in bed, did not rise past 88%. O2 turned up to 5 L, O2 sats increased to 94%.
[2020-05-11 03:43] VITALS: BP 150/78; PULSE 75; TEMP 98.4
[2020-05-11 07:29] VITALS: BP 178/94; PULSE 68; TEMP 98.1
--- NOTE | 2020-05-11 10:59 | NUR ---
The patient is positive for COVID. MARCIAL contacted the patient's personal phone to discuss discharge plan. The patient lives alone in [place]. She states that her just a week 1/2 ago. SW provided support. She states that she has other family that live nearby her. She reports independence with ADLs and does not have any DME. The patient's PCP is Dr. Belkis Rincon and she receives her medications from [facility]. She reports no difficulties obtaining her meds. The patient does not have a DPOA-HC in EMR, but she states that she does have one completed and that it designates her son, Benson Rutledge (ph#[phone]). The patient plans to return home upon discharge. MARCIAL then contacted and reviewed the above information with the patient's son, Benson. He states that he has no concerns about the patient returning back home. MARCIAL contacted KAYLEN Zhukennel manager dog track, at [facility] and requested a copy of the patient's DPOA-HC. The patient is currently requiring 5 liters of oxygen. MARCIAL to continue to monitor.
[2020-05-11 11:46] VITALS: BP 164/78; PULSE 78; TEMP 97.7
--- NOTE | 2020-05-11 12:35 | NUR ---
Patient is alert and oriented. denies pain, fever, chills. Observed patient cough severely. On 5L of O2. resting in bed at this moment.
[2020-05-11 16:45] VITALS: BP 156/80; PULSE 64; TEMP 97.7
--- NOTE | 2020-05-11 18:38 | NUR ---
Patient report low appetite, dry cough. No diarrhea. Patient was started on Coreg, Robitussin, and first dose of Remdesivir. On 5L O2 high flow nasal cannula at 94 - 95%. Patient resting in bed at this time.
--- NOTE | 2020-05-11 19:45 | NUR ---
Received report from [facility]. Seen patient awake, in bed. Assisted her in the bathroom. She denies pain. She's on O2 at 5lpm on high flow nasal cannula. With INT on left wrist. Call light within reach. She has dry cough. She is alert, oriented and independent.
[2020-05-11 19:55] VITALS: BP 158/86; PULSE 63; TEMP 98.2
[2020-05-11 23:25] VITALS: BP 154/80; PULSE 60; TEMP 98.3
[2020-05-12 03:26] VITALS: BP 150/84; PULSE 68; TEMP 97.7
--- NOTE | 2020-05-12 06:28 | NUR ---
Morning labs drawn. Assisted patient to the bathroom. Patient's gown is wet with her sweat. Changed her gown, bed sheets and blankets. Still with cough. Call light within reach.
[2020-05-12 06:48] LABS: GRAN # 4.2 (1.4-6.5); GRAN % 80.3 % (42.2-75.2); LYMPH # 0.6 (1.2-3.4); LYMPH % 11.2 % (20.0-51.0); MEAN CELL VOLUME 84 fl (80.0-100.0); MEAN CORPUSCULAR HGB CONC 33 g/dl (33.0-37.0); MEAN PLATELET VOLUME 11.3 fl (7.4-10.4); MONO # 0.4 (0.1-0.6); MONO % 8.1 % (1.7-9.3); PLATELET COUNT 128 K/mm3 (130-400); RED BLOOD COUNT 3.57 M/mm3 (4.10-5.30); REDCELL DISTRIBUTION WIDTH-CV 13.4 % (11.5-14.5)
[2020-05-12 06:50] LABS: HEMATOCRIT 29.8 % (37.0-47.0); HEMOGLOBIN 9.9 g/dl (12.5-16.0); MEAN CORPUSCULAR HEMOGLOBIN 28 pg (27.0-31.0)
[2020-05-12 06:58] LABS: CALCIUM 9.2 mg/dL (8.4-10.2); CREATININE, serum 0.69 (0.52-1.25)
[2020-05-12 08:37] VITALS: BP 152/80; PULSE 60; TEMP 97.5
--- NOTE | 2020-05-12 09:08 | NUR ---
Assessment completed, alert/oriented, vital signs stable/ afebrile, decrease o2 flow rate to 3L.NC and sats are WNL, lungs CTA/ RLL diminished, she has a non-productive cough, she reports feeling better today overall, heart RRR, she is eating and drinking, lucille other needs needs at this time
[2020-05-12 12:30] VITALS: BP 162/76; PULSE 57; TEMP 97.5
[2020-05-12 16:55] VITALS: BP 150/76; PULSE 67; TEMP 98
--- NOTE | 2020-05-12 18:55 | NUR ---
Report received from Drake ABDULLAHI. Pt resting in bed, denies needs at this time. Will continue to monitor.
--- NOTE | 2020-05-12 20:45 | NUR ---
Shift assessment complete. Pt ambulating well SBA, improved SOA with exertion, gait steady. Pt told she could get up independently as long as she felt steady and comfortable doing so. Lungs clear to auscultation, denies SOA at rest, mild SOA with exertion, breathing relaxed and unlabored, O2 sats at 95-96% on 2L NC. HRRR, A&Ox4. Denies pain. Blood sugars remain elevated, HS sugar-248. 6 units SSI administered. Doxy infusion started. Denies other needs at this time. Will continue to monitor.
[2020-05-12 20:55] VITALS: BP 150/100; PULSE 75; TEMP 97.7
[2020-05-12 22:52] VITALS: BP 154/92; PULSE 67; TEMP 98.5
--- NOTE | 2020-05-12 22:58 | NUR ---
Pt reports she does not want to be resuscitated or have any interventions performed if her heart stops, states she has a previos DNR order on her medical records at her PCP's office. Heather ROSARIO notified of this. Heather ordered to have a second RN verify pt's wishes and place the DNR order if pt desires. Shweta ABDULLAHI accompanied this RN to pt's room, pt was asked if she still wishes to not have any interventions done including chest compression, intubation, defibrillation, or medication administration. Pt verbally stated that she does not want any interventions. DNR order placed.
[2020-05-13 04:08] VITALS: BP 178/98; PULSE 63; TEMP 98.1
--- NOTE | 2020-05-13 05:13 | NUR ---
Pt asleep for most of night without complaint. Reports improvement with SOA and cough. Remains on 2 L O2 NC throughout night with sats between 92-96%. Code status changed to DNR.
--- NOTE | 2020-05-13 06:27 | NUR ---
Attempted lab draw x2. Blood flash both times but was unable to pull out enough to fill syringe. Lab notified.
[2020-05-13 09:13] VITALS: BP 181/91; PULSE 63; TEMP 97.7
[2020-05-13 10:01] LABS: GRAN # 4.4 (1.4-6.5); GRAN % 77.4 % (42.2-75.2); HEMOGLOBIN 10.6 g/dl (12.5-16.0); LYMPH # 0.9 (1.2-3.4); MEAN CELL VOLUME 84 fl (80.0-100.0); MEAN CORPUSCULAR HEMOGLOBIN 28 pg (27.0-31.0); MEAN CORPUSCULAR HGB CONC 33 g/dl (33.0-37.0); MEAN PLATELET VOLUME 11.5 fl (7.4-10.4); MONO # 0.4 (0.1-0.6); MONO % 6.9 % (1.7-9.3); PLATELET COUNT 146 K/mm3 (130-400); RED BLOOD COUNT 3.82 M/mm3 (4.10-5.30); REDCELL DISTRIBUTION WIDTH-CV 13.6 % (11.5-14.5)
[2020-05-13 10:02] LABS: HEMATOCRIT 32.2 % (37.0-47.0)
[2020-05-13 10:17] LABS: CALCIUM 9.3 mg/dL (8.4-10.2); CREATININE, serum 0.78 (0.52-1.25); POTASSIUM 3.9 mmol/L (3.4-5.0)
--- NOTE | 2020-05-13 11:02 | NUR ---
Assessment complete. Patient sitting in bed. States that she feels pretty good today. no complaints of pain or discomfort were expressed. IV site is CD&I, flushed well. Blood was drawn for labs, patient tolerated well. PAtient got up and ambulated to the restroom while i was in there and she did very well. No complaints of shortness of breath. Will continue to monitor. Call light is in reach.
[2020-05-13 12:22] VITALS: BP 176/92; PULSE 67; TEMP 97.9
[2020-05-13 12:25] LABS: ALBUMIN 3.5 gm/dL (3.5-5.0); BILIRUBIN UNCONJUGATED 0.2 mg/dL (0.0-1.1); BILIRUBIN,DIRECT 0.3 mg/dL (0.0-0.4); BILIRUBIN,TOTAL 0.4 mg/dL (0.0-1.0); TOTAL PROTEIN 6.5 gm/dL (6.4-8.2)
[2020-05-13 16:39] VITALS: BP 164/78; PULSE 68; TEMP 98.4
--- NOTE | 2020-05-13 18:20 | NUR ---
Patient had an uneventful day. SHe remained independent in the room with minimal needs. No complaints of pain or discomfort. Patient was continuously educated on insulin requirements as her sugars continue to be high and physician keeps ordering more. She was understanding and realizes it is because of the sterroids. SHe is in good spirits and is very pleasant. No other needs were expressed. Call light is in reach.
[2020-05-13 19:17] VITALS: BP 158/72; PULSE 68; TEMP 98.1
--- NOTE | 2020-05-13 20:00 | NUR ---
Patient assessed at this time. Alert and oriented x 4, and able to make needs known. Denies having pain and discomfort at this time. Peripheral INT to right wrist. Site flushed, and is without redness, warmth, swelling, and pain. Denies SOB and dyspnea. On oxygen at 2 L/min via NC. LS CTA. Respirations even and unlabored. Continues to have dry cough, no sputum production. Reports it is getting better. HRR. Telemetry in place: sinus. Capillary refill less than 3 seconds. Non-tenting skin tugor. BSAx4. Abdomen soft and non-tender. No edema. Voices no questions, needs, or concerns at this time. Resting in bed with call light within reach.
[2020-05-13 23:29] VITALS: BP 156/84; PULSE 64; TEMP 97.9
[2020-05-14 04:46] VITALS: BP 158/76; PULSE 71; TEMP 98.3
--- NOTE | 2020-05-14 05:54 | NUR ---
Patient has been resting in bed. Independent with toileting. Voices no questions, needs, or concerns at this time. Continues on oxygen at 2 L/min via NC. Dry, non-productive cough. Denies diarrhea. Call light is within reach.
[2020-05-14 06:59] LABS: HEMOGLOBIN 10.9 g/dl (12.5-16.0); MEAN CELL VOLUME 83 fl (80.0-100.0); MEAN CORPUSCULAR HEMOGLOBIN 27 pg (27.0-31.0); MEAN CORPUSCULAR HGB CONC 33 g/dl (33.0-37.0); MEAN PLATELET VOLUME 11.5 fl (7.4-10.4); PLATELET COUNT 172 K/mm3 (130-400); RED BLOOD COUNT 3.99 M/mm3 (4.10-5.30); REDCELL DISTRIBUTION WIDTH-CV 13.4 % (11.5-14.5)
[2020-05-14 07:09] LABS: HEMATOCRIT 32.9 % (37.0-47.0)
[2020-05-14 07:24] LABS: CALCIUM 9.5 mg/dL (8.4-10.2); CREATININE, serum 0.69 (0.52-1.25); POTASSIUM 3.8 mmol/L (3.4-5.0)
[2020-05-14 08:02] LABS: BAND 3 % (0-10); LYMPHOCYTE 18 % (20.0-51.0); NEUTROPHILS 74 % (42.0-75.2); PLATELET ESTIMATE NORMAL (NORMAL)
[2020-05-14 08:13] VITALS: BP 182/91; PULSE 69; TEMP 97.8
--- NOTE | 2020-05-14 08:35 | NUR ---
Assesment complete. Patient sound asleep on entry, awoke easily to voice. States that she feels pretty good and that she slept well. No comlaints of pain or discomfort. Medications given as ordered. Pressure was still high this morining, I took it multiple times to be sure, 180s/90s, BP medications given. IV site is CD&I, flushed well. No other needs were expressed at this time. CAll light is in reach. Will continue to monitor.
[2020-05-14 12:25] VITALS: BP 138/70; PULSE 64; TEMP 98.7
[2020-05-14 15:57] VITALS: BP 190/100; PULSE 63; TEMP 97.7
--- NOTE | 2020-05-14 16:04 | NUR ---
SW met with the patient to follow up and review d/c plan. The patient states that she is doing okay. PT worked with the patient and recommend home with home health vs outpatient PT. SW discussed this with the patient. The patient states that she would be okay with trying home health. SW informed her of how [facility] is taking postive COVID patients. The patient was agreeable with [facility]. MARCIAL contacted and faxed a referral to Damaris at [facility]. Damaris reports that they are able to accept the patient for services and will notify the weekend staff to be on the lookout, if she discharges over the weekend. MARCIAL contacted and updated the patient.
[2020-05-14 16:20] VITALS: BP 132/64
--- NOTE | 2020-05-14 18:22 | NUR ---
Patient had a good shift. Blood sugars were more stable than yesterday. No complaints of pain or discomfort. IV site remains intact. Patient is excited to go home tomorrow. Minimal needs. CAll light is in reach.
[2020-05-14 21:30] VITALS: BP 157/78; PULSE 67; TEMP 98.2
--- NOTE | 2020-05-14 21:30 | NUR ---
Patient assessed at this time. Alert and oriented x 4, and able to make needs known. Denies having pain and discomfort at this time. Peripheral INT to right wrist flushed. Site without redness, warmth, swelling, and pain. Denies SOB and dyspnea at this time. On oxygen at 2 L/min via NC. LS CTA. Respirations even and unlabored. HRR. Telemetry in place: normal sinus. Capillary refill less than 3 seconds. Non-tenting skin turgor. BSAx4. Abdomen soft and non-tender. No edema. Voices no questions, needs, or concerns at this time. Resting in bed watching TV with call light within reach. Continues on contact/droplet isloation for Covid-19.
[2020-05-15 04:51] VITALS: BP 138/74; PULSE 79; TEMP 98.6
--- NOTE | 2020-05-15 05:45 | NUR ---
Patient has denied pain and discomfort this shift. Continues on oxygen at 2 L/min via NC. Voices no questions, needs, or concerns at this time. Resting in bed with call light within reach.
[2020-05-15 09:57] VITALS: BP 140/75; PULSE 62; TEMP 98.1
[2020-05-15 10:23] LABS: HEMOGLOBIN 10.4 g/dl (12.5-16.0); MEAN CELL VOLUME 83 fl (80.0-100.0); MEAN CORPUSCULAR HEMOGLOBIN 27 pg (27.0-31.0); MEAN CORPUSCULAR HGB CONC 33 g/dl (33.0-37.0); MEAN PLATELET VOLUME 10.9 fl (7.4-10.4); PLATELET COUNT 162 K/mm3 (130-400); REDCELL DISTRIBUTION WIDTH-CV 13.4 % (11.5-14.5)
[2020-05-15 10:26] LABS: HEMATOCRIT 31.4 % (37.0-47.0)
[2020-05-15 10:34] LABS: CALCIUM 8.8 mg/dL (8.4-10.2); CREATININE, serum 0.64 (0.52-1.25)
[2020-05-15 10:50] LABS: BAND 3 % (0-10); LYMPHOCYTE 15 % (20.0-51.0); METAMYELOCYTE 1 % (0-0); NEUTROPHILS 72 % (42.0-75.2); PLATELET ESTIMATE NORMAL (NORMAL)
--- NOTE | 2020-05-15 13:00 | NUR ---
Patient was discharge home with Cefdinir, doxycyline and decadron. Patient was given discharge information on how to use oxygen at home, precaution instruction for covid + and symptoms that shos worsening condition. INT discontinued.
[2020-05-15] MEDS ORDERED: OMNICEF 300MG300 MG PO (13:29)
[2020-05-15 13:30] VITALS: BP 145/72; PULSE 67; TEMP 98.2
[2020-05-15] MEDS ORDERED: DOXYCYCLINE HY100 MG PO (13:30)
[2020-05-15] MEDS ORDERED: DECADRON6 MG PO (13:31)
--- NOTE | 2020-05-15 14:15 | NUR ---
PT WALKED BACK AND FORTH TWICE IN ROOM ON ROOM AIR SPO2 DROPPED TO 88% PT RECOVERED VERY QUICKLY WHEN SITTING DOWN TO REST W/O COMPLAINT OF SOB. KATTY EXERCISE VERY WELL AND DOES NOT REALLY FEEL NEED FOR HOME O2 BUT IA AGREEABLE TO USING IT AT THIS TIME.
--- NOTE | 2020-05-15 15:14 | NUR ---
o2 will be delivered to [facility] from [facility] for patient within an hour. Spoke with distribution sales representative to confirm.
--- NOTE | 2020-05-15 15:24 | NUR ---
Patient is alert and oriented, denies any pain. Patient received last dose of Remdesivir 100mg IV and Doxycycline 100MG IV today. Patient have no further concern or question at this time.
== END 2020-05-15 15:30 | disposition home or self-care (01) | DRG 177 ==
LOC: COL.ER 13:35 → PEDS 16:09
PROVIDERS: Physician Assistant; ADMIT Student in an Organized Health Care Education/Training Program
PROC: XW033E5 Introduction of Remdesivir Anti-infective into Peripheral Vein, Percutaneous Approach, New Technology Group 5 (ICD-10-PCS; principal; 2020-05-10)
DX: U07.1 COVID-19 (principal); J12.89 Other viral pneumonia; J96.01 Acute respiratory failure with hypoxia; E87.1 Hypo-osmolality and hyponatremia; I10 Essential (primary) hypertension; I25.10 Atherosclerotic heart disease of native coronary artery without angina pectoris; G25.81 Restless legs syndrome; F17.210 Nicotine dependence, cigarettes, uncomplicated; E11.65 Type 2 diabetes mellitus with hyperglycemia; T38.0X5A Adverse effect of glucocorticoids and synthetic analogues, initial encounter; Z95.5 Presence of coronary angioplasty implant and graft; Z79.84 Long term (current) use of oral hypoglycemic drugs; Z90.49 Acquired absence of other specified parts of digestive tract
CPT/HCPCS: 99222-AI; 99232-AI; 99233-AI; 99239; J0456; J0696; J1100; J1650; J1815; J7030; J7050

== ENCOUNTER 2020-06-27 23:43 | Emergency (ER) | payer MEDICARE ==
[~2020-06-27] VITALS: Ht 162.6 cm; Wt 88.6 kg
[~2020-06-27 23:43] MED LIST changes: +DECADRON6 MG PO; +DOXYCYCLINE HY100 MG PO; +OMNICEF 300MG300 MG PO
[2020-06-27 23:49] VITALS: TEMP 97.4
[2020-06-28 00:27] LABS: BASO % 0.5 % (0.0-2.0); EOS # 0.1 (0.0-0.7); EOS % 1.2 % (0-4.0); GRAN # 4.2 (1.4-6.5); HEMATOCRIT 38.7 % (37.0-47.0); HEMOGLOBIN 12.9 g/dl (12.5-16.0); LYMPH # 1.7 (1.2-3.4); LYMPH % 25.3 % (20.0-51.0); MEAN CELL VOLUME 85 fl (80.0-100.0); MEAN CORPUSCULAR HEMOGLOBIN 29 pg (27.0-31.0); MEAN CORPUSCULAR HGB CONC 33 g/dl (33.0-37.0); MEAN PLATELET VOLUME 10.6 fl (7.4-10.4); MONO # 0.6 (0.1-0.6); MONO % 8.8 % (1.7-9.3); PLATELET COUNT 146 K/mm3 (130-400); RED BLOOD COUNT 4.53 M/mm3 (4.10-5.30); REDCELL DISTRIBUTION WIDTH-CV 14.2 % (11.5-14.5)
[2020-06-28 00:32] LABS: ALBUMIN 4.5 gm/dL (3.5-5.0); CALCIUM 10.2 mg/dL (8.4-10.2); CREATININE, serum 0.57 (0.52-1.25); TOTAL PROTEIN 7.8 gm/dL (6.4-8.2)
[2020-06-28 01:35] VITALS: PULSE 74
[2020-06-28 01:39] VITALS: BP 180/110
== END 2020-06-28 01:41 | disposition home or self-care (01) ==
LOC: COL.ER 23:43
PROVIDERS: Physician Assistant
DX: E11.65 Type 2 diabetes mellitus with hyperglycemia (principal); I10 Essential (primary) hypertension; I25.10 Atherosclerotic heart disease of native coronary artery without angina pectoris; I16.0 Hypertensive urgency; Z95.5 Presence of coronary angioplasty implant and graft; Z90.49 Acquired absence of other specified parts of digestive tract; Z87.891 Personal history of nicotine dependence; Z79.02 Long term (current) use of antithrombotics/antiplatelets; Z79.84 Long term (current) use of oral hypoglycemic drugs

== ENCOUNTER 2021-01-05 20:27 | Emergency (ER) | payer MEDICARE ==
[~2021-01-05] VITALS: Ht 162.6 cm; Wt 93.2 kg
[2021-01-05 22:10] VITALS: BP 197/102; PULSE 85; TEMP 98.4
[2021-01-06] MEDS ORDERED: FLEXERIL 1010 MG/TAB PO (12:24)
== END 2021-01-05 22:10 | disposition home or self-care (01) ==
LOC: COL.ER 20:27
DX: M79.604 Pain in right leg (principal); I10 Essential (primary) hypertension; E11.9 Type 2 diabetes mellitus without complications; E78.5 Hyperlipidemia, unspecified; G89.29 Other chronic pain; Z79.02 Long term (current) use of antithrombotics/antiplatelets; Z79.899 Other long term (current) drug therapy; Z79.84 Long term (current) use of oral hypoglycemic drugs

== ENCOUNTER 2021-01-06 10:29 | Emergency (ER) | payer MEDICARE ==
[~2021-01-06] VITALS: Ht 162.6 cm; Wt 90.9 kg
[2021-01-06 10:33] VITALS: TEMP 98.5
[2021-01-06 11:37] LABS: BASO % 0.4 % (0.0-2.0); EOS # 0.1 (0.0-0.7); EOS % 0.9 % (0-4.0); GRAN # 3.4 (1.4-6.5); GRAN % 62.8 % (42.2-75.2); HEMATOCRIT 35.5 % (37.0-47.0); HEMOGLOBIN 11.5 g/dl (12.5-16.0); LYMPH # 1.4 (1.2-3.4); LYMPH % 26.6 % (20.0-51.0); MEAN CELL VOLUME 86 fl (80.0-100.0); MEAN CORPUSCULAR HEMOGLOBIN 28 pg (27.0-31.0); MEAN CORPUSCULAR HGB CONC 32 g/dl (33.0-37.0); MEAN PLATELET VOLUME 10.6 fl (7.4-10.4); MONO # 0.5 (0.1-0.6); MONO % 9.1 % (1.7-9.3); PLATELET COUNT 136 K/mm3 (130-400); RED BLOOD COUNT 4.11 M/mm3 (4.10-5.30); REDCELL DISTRIBUTION WIDTH-CV 14.2 % (11.5-14.5)
[2021-01-06 11:46] LABS: ALBUMIN 4.2 gm/dL (3.5-5.0); BILIRUBIN,TOTAL 0.5 mg/dL (0.0-1.0); CALCIUM 9.7 mg/dL (8.4-10.2); CREATININE, serum 0.62 (0.52-1.25); MAGNESIUM 1.6 mg/dL (1.6-2.3); POTASSIUM 4.7 mmol/L (3.4-5.0); TOTAL PROTEIN 7.4 gm/dL (6.4-8.2)
[2021-01-06] MEDS ORDERED: FLEXERIL 1010 MG/TAB PO (12:24)
[2021-01-06 12:30] VITALS: BP 142/84; PULSE 80
== END 2021-01-06 12:30 | disposition home or self-care (01) ==
LOC: COL.ER 10:29
PROVIDERS: Emergency Medicine
DX: M79.604 Pain in right leg (principal); E11.9 Type 2 diabetes mellitus without complications; I10 Essential (primary) hypertension; E78.5 Hyperlipidemia, unspecified; Z79.02 Long term (current) use of antithrombotics/antiplatelets; Z79.899 Other long term (current) drug therapy; Z79.84 Long term (current) use of oral hypoglycemic drugs

== ENCOUNTER 2021-02-17 14:24 | Emergency (ER) | payer MEDICARE ==
[~2021-02-17] VITALS: Ht 162.6 cm; Wt 88.6 kg
[~2021-02-17 14:24] MED LIST changes: +FLEXERIL 1010 MG/TAB PO
[2021-02-17 14:34] VITALS: TEMP 96.9
[2021-02-17 14:53] LABS: BASO % 0.6 % (0.0-2.0); EOS # 0.1 (0.0-0.7); GRAN # 4.2 (1.4-6.5); GRAN % 62.2 % (42.2-75.2); HEMOGLOBIN 11.1 g/dl (12.5-16.0); LYMPH # 1.9 (1.2-3.4); LYMPH % 27.4 % (20.0-51.0); MEAN CELL VOLUME 86 fl (80.0-100.0); MEAN CORPUSCULAR HEMOGLOBIN 27 pg (27.0-31.0); MEAN CORPUSCULAR HGB CONC 32 g/dl (33.0-37.0); MEAN PLATELET VOLUME 10.5 fl (7.4-10.4); MONO # 0.6 (0.1-0.6); MONO % 8.4 % (1.7-9.3); PLATELET COUNT 204 K/mm3 (130-400); RED BLOOD COUNT 4.05 M/mm3 (4.10-5.30)
[2021-02-17 14:56] LABS: PROTHROMBIN TIME 11.6 SECONDS (9.7-12.8)
[2021-02-17 14:58] LABS: PARTIAL THROMBOPLASTIN TIME 29.7 SECONDS (26.0-37.0)
[2021-02-17 15:02] LABS: HEMATOCRIT 34.8 % (37.0-47.0)
[2021-02-17 15:22] LABS: ALANINE AMINOTRANSFERASE 33 U/L (4-34); ALBUMIN 4.1 gm/dL (3.5-5.0); ALKALINE PHOSPHATASE 99 U/L (50-136); ANION GAP 12 mmol/L (7-16); AST,SGOT 55 U/L (15-37); BILIRUBIN,TOTAL 0.7 mg/dL (0.0-1.0); BLOOD UREA NITROGEN 16 mg/dL (7-17); CALCIUM 9.7 mg/dL (8.4-10.2); CARBON DIOXIDE 24 mmol/L (22-30); CHLORIDE 101 mmol/L (98-107); CREATININE, serum 0.66 (0.52-1.25); GLUCOSE 239 mg/dL (74-106); POTASSIUM 4.5 mmol/L (3.4-5.0); SODIUM 137 mmol/L (137-145); TOTAL PROTEIN 7.4 gm/dL (6.4-8.2)
[2021-02-17 15:37] LABS: TROPONIN-I < 0.012 ng/mL (0.000-0.035)
[2021-02-17 18:14] VITALS: BP 106/85; PULSE 84
== END 2021-02-17 18:14 | disposition home or self-care (01) ==
LOC: COL.ER 14:24
PROVIDERS: Family Medicine
DX: B34.9 Viral infection, unspecified (principal); I10 Essential (primary) hypertension; E11.9 Type 2 diabetes mellitus without complications; E78.5 Hyperlipidemia, unspecified; G89.29 Other chronic pain; Z20.822 Contact with and (suspected) exposure to COVID-19; Z79.84 Long term (current) use of oral hypoglycemic drugs; Z79.899 Other long term (current) drug therapy
CPT/HCPCS: J7120